=== PATIENT | female | born 1995 | race Two or more races ===

== ENCOUNTER 2017-12-23 14:10 | Emergency (ER) | payer MEDICAID ==
[~2017-12-23] VITALS: Ht 160 cm; Wt 74.8 kg
[2017-12-23] MEDS ORDERED: IBUPROFEN 600 MG TAB PO ONE (14:30)
[2017-12-23 14:51] LABS: Basophils # (auto) 0 uL; Basophils % (auto) 0.3 % (0.0-2.0); Eosinophils # (auto) 0 uL; Hemoglobin 12.1 g/dL (12.2-16.2); Lymphocytes # (auto) 1.1 uL
[2017-12-23 14:52] LABS: Hematocrit 37.3 % (36.0-46.0); Lymphocytes % (auto) 10.3 % (10.0-50.0); Mean Corpuscular Hemoglobin 26.3 pg (28.0-32.0); Mean Corpuscular Hgb Conc. 32.4 g/dL (32.0-36.0); Mean Corpuscular Volume 81.2 fL (80.0-100.0); Monocytes # (auto) 0.8 uL; Monocytes % (auto) 8.2 % (0.0-12.0); Neutrophils # (auto) 8.3 uL; Neutrophils % (auto) 81.2 % (37.0-80.0); Platelet Count (auto) 274 10^3/uL (140-450); Red Blood Cells 4.59 10^6/uL (4.0-5.20); Red Cell Distribution Width 15.9 % (11.8-14.3); White Blood Cell 10.3 10^3/uL (4.4-10.8)
[2017-12-23 15:17] LABS: Albumin 3.5 g/dL (3.4-5.0); Bilirubin, Total 0.3 mg/dL (0.2-1.0); Calcium 8.5 mg/dL (8.5-10.1); Potassium 3.3 mmol/L (3.5-5.1); Total Protein 8.4 g/dL (6.4-8.2)
[2017-12-23 15:17] LABS: Urine Bacteria FEW /hpf (None Seen); Urine Blood TRACE /uL (Negative); Urine Mucus FEW (None Seen); Urine Specific Gravity 1.018 (1.001-1.035); Urine WBC 22 /hpf (0 - 5)
[2017-12-23 18:52] VITALS: BP 119/76
[2017-12-23] MEDS ORDERED: cefTRIAXone SOD 1,000 MG VL IM ONE (21:00)
== END 2017-12-23 21:36 | disposition home or self-care (01) ==
LOC: ER 14:10
DX: N39.0 Urinary tract infection, site not specified (principal)
CPT/HCPCS: 36415; 76775; 80053; 81001; 81025; 83605; 85025; 87040; 87086; 87088; 87186; 96372; 99285; J0696

== ENCOUNTER 2018-02-12 12:00 | Emergency (ER) | payer MEDICAID ==
[~2018-02-12] VITALS: Ht 160 cm; Wt 68.0 kg
[2018-02-12 12:32] VITALS: BP 117/58
[2018-02-12 12:46] LABS: Urine Bacteria MANY /hpf (None Seen); Urine Blood Negative /uL (Negative); Urine Mucus FEW (None Seen); Urine Specific Gravity 1.015 (1.001-1.035); Urine WBC 43 /hpf (0 - 5)
== END 2018-02-12 13:12 | disposition home or self-care (01) ==
LOC: ER 12:02
DX: N39.0 Urinary tract infection, site not specified (principal)
CPT/HCPCS: 81001